=== PATIENT | female | born 1995 | race African-American/Black ===

== ENCOUNTER 2016-11-23 09:31 | Observation (INO) | payer SELFPAY ==
[~2016-11-23] VITALS: Ht 165.1 cm; Wt 104.5 kg
[2016-11-23] VITALS (7 sets, daily range): BP systolic 104–125; BP diastolic 59–79; PULSE 57–97; RESP 15–20; TEMP 98–99.9; O2SAT 95–100
[~2016-11-23 09:31] MED LIST: PERC5TAB12 PO
[2016-11-23] MEDS ORDERED: MORPHINE SULFATE 4 MG/ML INJ IV PUSH ONE (10:00)
--- NOTE | 2016-11-23 10:07 | PD ---
HPI Chief Complaint: Pain: Acute or Chronic Time Seen by Provider: 09:55 Travel History International Travel<30 days: No Contact w/Intl Traveler<30days: No Traveled to known affect area: No History of Present Illness HPI 21-year-old female here for evaluation of severe left elbow pain. The patient reports that yesterday she felt a strange sensation in her left elbow, feeling like it was "out," and unable to extend it fully. She manipulated her elbow and was able to "pop" it, and later on yesterday evening she had her father manipulate her elbow as well. She states that she woke up this morning with severe pain and swelling in her left elbow. Pain is constant, worse with movements and palpation. She is unable to move her elbow without causing extreme pain. In triage it was noted that she has a slight fever 99.9F. She denies IVDU, but admits to smoking marijuana. She is right-handed. [facility] Past Medical History Medical History: Denies Significant Hx Diminished Hearing: No Reproductive: Yes (Cyst on Ovaries) Tetanus Vaccination: < 5 Years Influenza Vaccination: Yes ?: Not LMP: 10/29/16 Past Surgical History Surgical History: No Previous Surgery Social History Alcohol Use: Yes (occ) Tobacco Use: Yes (2 black and milds daily) Substance Use: Yes (marijuana) Allergies-Medications (Allergen,Severity, Reaction): Coded Allergies: No Known Allergies (Unverified , 04/14/15) Reported Meds & Prescriptions Reported Meds & Active Scripts Active No Active Prescriptions or Reported Medications Review of Systems Except as stated in HPI: all other systems reviewed are Neg Physical Exam Narrative GENERAL: Pleasant, well-developed, well-nourished, tearful, no apparent distress. SKIN: Focused skin assessment warm/dry. HEAD: Atraumatic. Normocephalic. EYES: Pupils equal and round. No scleral icterus. No injection or drainage. ENT: Mucous membranes pink and moist. NECK: Trachea midline. No JVD. No nuchal rigidity. CARDIOVASCULAR: Regular rate and rhythm. Bilateral distal radial pulses are brisk and equal. RESPIRATORY: No accessory muscle use. Clear to auscultation. Breath sounds equal bilaterally. GASTROINTESTINAL: Abdomen soft, non-tender, nondistended. MUSCULOSKELETAL: Left elbow/proximal/distal forearm with moderate edema and diffuse tenderness. Patient holding her left arm in extension and supporting her arm with her right hand. All compartments in the left upper extremity are supple. Patient is able to flex and extend her hand without difficulty, causing mild pain in her left proximal forearm. There is overlying warmth over the left elbow without obvious erythema, no overlying skin lesions. NEUROLOGICAL: Awake and alert. No obvious cranial nerve deficits. Motor grossly within normal limits. Normal speech. Normal sensation in left upper extremity. PSYCHIATRIC: Appropriate mood and affect; insight and judgment normal. Data Data Last Documented VS Vital Signs Date Time Temp Pulse Resp B/P Pulse Ox O2 Delivery O2 Flow Rate FiO2 11/23/16 15:00 87 15 125/79 99 Room Air 11/23/16 09:55 98.0 Orders Basic Metabolic Panel (Bmp) (11/23/16 09:59) Beta Hcg (Quant/Titer) (11/23/16 09:59) Complete Blood Count With Diff (11/23/16 09:59) Prothrombin Time / Inr (Pt) (11/23/16 09:59) Act Partial Throm Time (Ptt) (11/23/16 09:59) Iv Access Insert/Monitor (11/23/16 09:59) Ecg Monitoring (11/23/16 09:59) Oximetry (11/23/16 09:59) Morphine Inj (Morphine Inj) (11/23/16 10:00) Sodium Chloride 0.9% Flush (Ns Flush) (11/23/16 10:00) Westergren Sedimentation Rate (11/23/16 09:59) C-Reactive Protein (Crp) (11/23/16 09:59) Blood Culture (11/23/16 09:59) Elbow, Complete (4 Vws) (11/23/16 ) Forearm (2vws) (11/23/16 ) Creatine Kinase (Cpk) (11/23/16 09:59) Hydromorphone Pf Inj (Dilaudid Pf Inj) (11/23/16 11:15) Mri Joint Elbow W&W/O Contrast (11/23/16 ) Gadodiamide Pf Inj (Omniscan Pf Inj) (11/23/16 12:15) Hydromorphone Pf Inj (Dilaudid Pf Inj) (11/23/16 15:30) Labs Laboratory Tests Test 11/23/16 10:20 White Blood Count 7.0 TH/MM3 Red Blood Count 4.53 MIL/MM3 Hemoglobin 13.4 GM/DL Hematocrit 40.7 % Mean Corpuscular Volume 90.0 FL Mean Corpuscular Hemoglobin 29.5 PG Mean Corpuscular Hemoglobin 32.8 % Concent Red Cell Distribution Width 14.3 % Platelet Count 263 TH/MM3 Mean Platelet Volume 8.2 FL Neutrophils (%) (Auto) 54.1 % Lymphocytes (%) (Auto) 33.6 % Monocytes (%) (Auto) 9.4 % Eosinophils (%) (Auto) 0.9 % Basophils (%) (Auto) 2.0 % Neutrophils # (Auto) 3.8 TH/MM3 Lymphocytes # (Auto) 2.3 TH/MM3 Monocytes # (Auto) 0.7 TH/MM3 Eosinophils # (Auto) 0.1 TH/MM3 Basophils # (Auto) 0.1 TH/MM3 CBC Comment DIFF FINAL Differential Comment Erythrocyte Sedimentation Rate 25 mm/hr Prothrombin Time 10.5 SEC Prothromb Time International 1.0 RATIO Ratio Activated Partial 31.7 SEC Thromboplast Time Sodium Level 140 MEQ/L Potassium Level 3.6 MEQ/L Chloride Level 106 MEQ/L Carbon Dioxide Level 27.5 MEQ/L Anion Gap 7 MEQ/L Blood Urea Nitrogen 5 MG/DL Creatinine 0.76 MG/DL Estimat Glomerular Filtration 114 ML/MIN Rate Random Glucose 92 MG/DL Calcium Level 8.6 MG/DL Total Creatine Kinase 132 U/L C-Reactive Protein 1.40 MG/DL Human Chorionic Gonadotropin, LESS THAN 1 Quant MIU/ML MDM Medical Decision Making Medical Screen Exam Complete: Yes Emergency Medical Condition: Yes Differential Diagnosis Elbow fracture, septic arthritis, DVT less likely, compartment syndrome less likely Narrative Course Initial vital signs show heart rate 97, blood pressure 125/72, pulse ox 100% on room air, oral temp of 99.9F. CBC is unremarkable. BMP is unremarkable. Beta hCG is negative. Total CK is 132. CRP is elevated at 1.4. ESR is elevated at 25. Left elbow x-ray shows no acute disease. Left forearm x-ray shows no acute disease. Patient was given a dose of morphine and on reassessment she is still crying because she is in pain. She is keeping her arm in extension. Again all compartments in the left upper extremity are supple, however her elbow is diffusely tender. MRI will be ordered to further investigate the patient's pain. MRI left elbow: CONCLUSION: 1. There is nonspecific myositis and tendinosis of triceps. No rupture seen. 2. Small joint effusion and mild to moderate synovitis. 3. Mild to moderate olecranon bursitis. 4. No osteomyelitis. Case discussed with on-call orthopedic surgeon Dr. Ball. No surgical intervention necessary at this time. Patient was made aware of all findings. She is again crying because of pain. She will be given another dose of Dilaudid. I supplied to left elbow and it is being kept elevated. Given uncontrolled pain, the patient be admitted for overnight observation. Case discussed with hospitalist Dr Rivero who will admit the patient to his service. Diagnosis Primary Impression: Left elbow pain Additional Impression: Intractable pain Admitting Information Admitting Physician Requests: Observation Scripts No Active Prescriptions or Reported Meds Oscar Adrian MD November 23, 2016 10:07
[2016-11-23 10:40] LABS: AUTOMATED NEUTROPHIL # 3.8 TH/MM3 (1.8-7.7); BASOPHIL # 0.1 TH/MM3 (0-0.2); EOSINOPHIL # 0.1 TH/MM3 (0-0.4); EOSINOPHIL % 0.9 % (0.0-4.0); HEMATOCRIT 40.7 % (35.0-46.0); HEMO FLAGS DIFF FINAL; LYMPH % 33.6 % (9.0-44.0); LYMPHOCYTE # 2.3 TH/MM3 (1.0-4.8); MEAN CORPUSCULAR HEMOGLOBIN 29.5 PG (27.0-34.0); MEAN CORPUSCULAR HGB CONC 32.8 % (32.0-36.0); MONO % 9.4 % (0.0-8.0); NEUT % 54.1 % (16.0-70.0); PLATELET COUNT 263 TH/MM3 (150-450); RED BLOOD COUNT 4.53 MIL/MM3 (4.00-5.30); RED CELL DISTRIBUTION WIDTH 14.3 % (11.6-17.2)
[2016-11-23 10:49] LABS: APTT (PATIENT) 31.7 SEC (24.3-30.1); PROTHROMBIN TIME - PATIENT 10.5 SEC (9.8-11.6)
--- NOTE | 2016-11-23 10:51 | RADRPT ---
EXAM DATE/TIME: 11/23/2016 10:28 [facility] COMPARISON: ELBOW LEFT COMPLETE (4 VWS), November 23, 2016, 10:29. INDICATIONS : Left elbow pain, no known injury. MEDICAL HISTORY : None. SURGICAL HISTORY : None. ENCOUNTER: Initial ACUITY: 2 days PAIN SCORE: 10/10 LOCATION: Left elbow FINDINGS: Two view examination of the left forearm demonstrates no evidence of fracture or dislocation. Bony m ineralization is normal. The soft tissue structures are intact. CONCLUSION: No acute disease. Vega Machuca MD on November 23, 2016 at 10:50 Board Certified Radiologist. This report was verified electronically.
--- NOTE | 2016-11-23 10:52 | RADRPT ---
EXAM DATE/TIME: 11/23/2016 10:29 [facility] COMPARISON: FOREARM LEFT (2VWS), November 23, 2016, 10:28. INDICATIONS : Left elbow pain, no known injury. MEDICAL HISTORY : None. SURGICAL HISTORY : None. ENCOUNTER: Initial ACUITY: 2 days PAIN SCORE: 10/10 LOCATION: Left elbow FINDINGS: Multiple view examination of the left elbow demonstrates no soft tissue swelling, joint effusion, or fracture. The osseous structures are in normal alignment. Bony mineralization is normal. CONCLUSION: No acute disease. Vega Machuca MD on November 23, 2016 at 10:50 Board Certified Radiologist. This report was verified electronically.
[2016-11-23 10:55] LABS: ANION GAP 7 MEQ/L (5-15); BICARBONATE 27.5 MEQ/L (21.0-32.0); BLOOD UREA NITROGEN 5 MG/DL (7-18); CHLORIDE 106 MEQ/L (98-107); GLOMERULAR FILTRATION RATE 114 ML/MIN (>89); POTASSIUM 3.6 MEQ/L (3.5-5.1); SODIUM (NA) 140 MEQ/L (136-145)
[2016-11-23 10:59] LABS: BETA HCG QUANT LESS THAN 1 MIU/ML (0-5); CREATINE KINASE 132 U/L (26-192)
[2016-11-23] MEDS ORDERED: HYDROmorphone HCL PF 1 MG/ML VIAL IV PUSH ONE ×2 (11:15→15:30)
[2016-11-23] MEDS ORDERED: GADODIAMIDE PF 287 MG/ML 20 ML VIAL (for RAD MRI) IV ONE (12:15)
--- NOTE | 2016-11-23 15:04 | RADRPT ---
EXAM DATE/TIME: 11/23/2016 11:48 [facility] COMPARISON: ELBOW LEFT COMPLETE (4 VWS), November 23, 2016, 10:29. INDICATIONS : Edema. New onset left elbow pain, fever, ans swelling without specific injury. CONTRAST: 20 cc Omniscan (gadodiamide) IV MEDICAL HISTORY : Ovarian cyst. SURGICAL HISTORY : None. ENCOUNTER: Initial ACUITY: 2 day PAIN SCORE: 4/10 LOCATION: Left elbow. TECHNIQUE: Multiplanar, multisequence MRI examination was performed without contrast and after the intravenous a dministration of gadolinium. FINDINGS: There is distal and insertional tendinosis of triceps. Edema and/or hemorrhage seen in the distal mus romana bellies, specially laterally.. There is focal 7 mm dark signal intensity laterally the distal ten don, probably calcific deposit. A few longitudinal splits are seen of the distal tendon but no transv erse tear/fluid-filled gap. Small amount of fluid with synovial thickening seen in the olecranon burs a. There is a small joint effusion with mild to moderate synovitis and reactive appearing synovial en hancement. No mass lesion demonstrated. There are no bony signal changes of osteomyelitis. CONCLUSION: 1. There is nonspecific myositis and tendinosis of triceps. No rupture seen. 2. Small joint effusion and mild to moderate synovitis. 3. Mild to moderate olecranon bursitis. 4. No osteomyelitis. Riky Mike MD on November 23, 2016 at 14:58 Board Certified Radiologist. This report was verified electronically.
[2016-11-23] MEDS ORDERED: ONDANSETRON HCL 4 MG/2 ML VIAL IV PUSH PRN (15:45)
[2016-11-23] MEDS ORDERED: HYDROmorphone HCL PF 1 MG/ML VIAL IV PUSH PRN (17:15)
[2016-11-23] MEDS ORDERED: ACETAMINOPHEN/HYDROcodone 325 MG/5 MG TAB PO PRN ×2 (17:15)
--- NOTE | 2016-11-23 17:19 | HHI.HP ---
[facility] No Primary Care Physician Admission Diagnosis intractable left elbow pain Diagnoses: (1) Left elbow pain Diagnosis: Principal Chief Complaint: left elbow pain and swelling Travel History International Travel<30 Days: No Contact w/Intl Traveler <30 Da: No Traveled to Known Affected Are: No History of Present Illness patient is a 21 y/o female with no significant past medical history who presented to ER with pain and swelling of the left elbow. she says that she slipped on the floor the other night after which she started to have some pain and swelling of the left elbow. she says that her father tried to manipulate her elbow after which the swelling and pain got worse.she denies any fever or any other complaints. Review of Systems Constitutional: DENIES: Fever, Weight loss, Chills, Night Sweats Eyes: DENIES: Blurred vision, Diplopia, Vision loss, Double Vision Ears, nose, mouth, throat: DENIES: Tinnitus, Vertigo, Throat pain, Epistaxis Respiratory: DENIES: Apneas, Cough, Snoring, Wheezing, Hemoptysis, Sputum production, Shortness of breath Cardiovascular: DENIES: Chest pain, Palpitations, Syncope, Dyspnea on Exertion , PND, Lower Extremity Edema, Orthopnea, Claudication Gastrointestinal: DENIES: Abdominal pain, Black stools, Bloody stools, Constipation, Diarrhea, Nausea, Vomiting, Difficulty Swallowing, Anorexia Genitourinary: DENIES: Urinary frequency, Urgency, Hematuria, Dysuria Musculoskeletal: COMPLAINS OF: Joint pain (left elbow), DENIES: Muscle aches, Stiffness, Joint Swelling Integumentary: DENIES: Rash Neurologic: DENIES: Abnormal gait, Headache, Localized weakness, Paresthesias, Seizures, Speech Problems, Tremor, Poor Balance Psychiatric: DENIES: Anxiety, Confusion, Mood changes, Depression, Hallucinations, Agitation, Suicidal Ideation, Homicidal Ideation, Delusions Past Family Social History Past Medical History not significant. Past Surgical History none reported. Reported Medications none reported. Allergies: Coded Allergies: No Known Allergies (Unverified , 04/14/15) Active Ordered Medications Current Medications Morphine Sulfate (Morphine Inj) 4 mg ONCE ONCE IV PUSH Last administered on 10:39; Start 11/23/16 at 10:00; Stop 11/23/16 at 10:04; Status DC Sodium Chloride (NS Flush) 2 ml UNSCH PRN IV FLUSH FLUSH AFTER USING IV ACCESS ; Start 11/23/16 at 10:00 Hydromorphone HCl (Dilaudid Pf Inj) 1 mg ONCE ONCE IV PUSH Last administered on 11/23/16 11:24; Start 11/23/16 at 11:15; Stop 11/23/16 at 11:16; Status DC Gadodiamide (Omniscan Pf Inj) 20 ml STK-MED ONCE IV Last administered on 12:15; Start 11/23/16 at 12:15; Stop 11/23/16 at 12:16; Status DC Hydromorphone HCl (Dilaudid Pf Inj) 1 mg ONCE ONCE IV PUSH Last administered on 11/23/16 15:36; Start 11/23/16 at 15:30; Stop 11/23/16 at 15:31; Status DC Ondansetron HCl (Zofran Inj) 4 mg Q8HR PRN IV PUSH NAUSEA; Start 11/23/16 at 15 :45 Family History not relevant to this admission. Social History smokes few cigarettes a day- drinks occasionally. Physical Exam Vital Signs Vital Signs Date Time Temp Pulse Resp B/P Pulse Ox O2 Delivery O2 Flow Rate FiO2 11/23/16 15:00 87 15 125/79 99 Room Air 11/23/16 14:10 16 11/23/16 10:44 16 11/23/16 10:39 57 18 115/66 97 11/23/16 09:55 98.0 11/23/16 09:33 99.9 97 20 125/72 100 Room Air Physical Exam GENERAL: This is a well-nourished, well-developed patient, in no apparent distress. SKIN: No rashes, ecchymoses or lesions. Cool and dry. HEAD: Atraumatic. Normocephalic. No temporal or scalp tenderness. EYES: Pupils equal round and reactive. Extraocular motions intact. No scleral icterus. No injection or drainage. ENT: Nose without bleeding, purulent drainage or septal hematoma. Throat without erythema, tonsillar hypertrophy or exudate. Uvula midline. Airway patent. NECK: Trachea midline. No JVD or lymphadenopathy. Supple, nontender, no meningeal signs. CARDIOVASCULAR: Regular rate and rhythm without murmurs, gallops, or rubs. RESPIRATORY: Clear to auscultation. Breath sounds equal bilaterally. No wheezes , rales, or rhonchi. GASTROINTESTINAL: Abdomen soft, non-tender, nondistended. No hepato-splenomegaly , or palpable masses. No guarding. MUSCULOSKELETAL: left arm is swollen and tender along with swelling of the left elbow. NEUROLOGICAL: Awake and alert. Cranial nerves II through XII intact. Motor and sensory grossly within normal limits. Five out of 5 muscle strength in all muscle groups. Normal speech. Laboratory Laboratory Tests Test 11/23/16 10:20 White Blood Count 7.0 Red Blood Count 4.53 Hemoglobin 13.4 Hematocrit 40.7 Mean Corpuscular Volume 90.0 Mean Corpuscular Hemoglobin 29.5 Mean Corpuscular Hemoglobin 32.8 Concent Red Cell Distribution Width 14.3 Platelet Count 263 Mean Platelet Volume 8.2 Neutrophils (%) (Auto) 54.1 Lymphocytes (%) (Auto) 33.6 Monocytes (%) (Auto) 9.4 Eosinophils (%) (Auto) 0.9 Basophils (%) (Auto) 2.0 Neutrophils # (Auto) 3.8 Lymphocytes # (Auto) 2.3 Monocytes # (Auto) 0.7 Eosinophils # (Auto) 0.1 Basophils # (Auto) 0.1 CBC Comment DIFF FINAL Differential Comment Erythrocyte Sedimentation Rate 25 Prothrombin Time 10.5 Prothromb Time International 1.0 Ratio Activated Partial 31.7 Thromboplast Time Sodium Level 140 Potassium Level 3.6 Chloride Level 106 Carbon Dioxide Level 27.5 Anion Gap 7 Blood Urea Nitrogen 5 Creatinine 0.76 Estimat Glomerular Filtration 114 Rate Random Glucose 92 Calcium Level 8.6 Total Creatine Kinase 132 C-Reactive Protein 1.40 Human Chorionic Gonadotropin, LESS THAN 1 Quant Date/Time Procedure Status Source Growth 11/23/16 10:25 Aerobic Blood Culture Received Blood Peripheral Pending 11/23/16 10:25 Anaerobic Blood Culture Received Blood Peripheral Pending Result Diagram: 11/23/16 1020 11/23/16 1020 Imaging Last Impressions Radius/Ulna X-Ray 11/23/16 0000 Signed Impressions: Service Date/Time: Wednesday, November 23, 2016 10:28 - CONCLUSION: No acute disease. Vega Machuca MD Elbow X-Ray 11/23/16 0000 Signed Impressions: Service Date/Time: Wednesday, November 23, 2016 10:29 - CONCLUSION: No acute disease. Vega Machuca MD Elbow MRI 11/23/16 0000 Signed Impressions: Service Date/Time: Wednesday, November 23, 2016 11:48 - CONCLUSION: 1. There is nonspecific myositis and tendinosis of triceps. No rupture seen. 2. Small joint effusion and mild to moderate synovitis. 3. Mild to moderate olecranon bursitis. 4. No osteomyelitis. Riky Mike MD Assessment and Plan Assessment and Plan A/P - triceps tendonitis and olecranon bursitis continue with pain control- will consult ortho. Discussed Condition With ER physician and the patient. Elvira Rivero MD November 23, 2016 17:19
[2016-11-23] MEDS: SODIUM CHLORIDE 0.9% FLUSH 10 ML FLUSH IV FLUSH PRN ×2 (18:11→20:23)
[2016-11-24 04:18] VITALS: BP 103/57; PULSE 86; RESP 18; TEMP 98.4; O2SAT 97
[2016-11-24] MEDS ORDERED: IBUP800T23 PO (07:17)
[2016-11-24] MEDS ORDERED: IBUPROFEN 800 MG TAB PO SCH (07:30)
[2016-11-24 07:44] VITALS: BP 109/58; PULSE 69; RESP 18; TEMP 98.1; O2SAT 97
--- NOTE | 2016-11-24 09:27 | HHI.DCPOC ---
Discharge Care Plan Diagnosis: (1) Left elbow pain (2) Olecranon bursitis of left elbow (3) Synovitis of elbow (4) Triceps tendonitis Goals to Promote Your Health * To prevent worsening of your condition and complications * To maintain your health at the optimal level Directions to Meet Your Goals Take your medications as prescribed Follow your dietary instruction Follow activity as directed Keep your appointments as scheduled Take your immunizations and boosters as scheduled If your symptoms worsen call your PCP, if no PCP go to Urgent Care Center or Emergency Room Smoking is Dangerous to Your Health. Avoid second hand smoke Call the 24-hour hour crisis hotline for domestic abuse at Radha Grmim PA-C November 24, 2016 9:26 am
[2016-11-24] MEDS: SODIUM CHLORIDE 0.9% FLUSH 10 ML FLUSH IV FLUSH PRN (09:28)
--- NOTE | 2016-11-24 09:32 | MB ---
cc: BRANDEN BRITT DATE OF SERVICE 11/24/2016 CHIEF COMPLAINT Left elbow pain and swelling. HISTORY OF PRESENT ILLNESS The patient is a 21-year-old female who presents today with a three-day history of left elbow pain. She states that her elbow pain started approximately three days ago. She states that she had her father "pull" her elbow which caused it to pop. She states that after experiencing this popping sensation she had immediate pain and swelling. She states the swelling has progressed. She states that her pain is on the back part of her elbow. She reports that she has pain with movement and bending and extending her elbow. She denies any numbness, tingling or radiation symptoms. She denies any redness. Denies any recent trauma to the elbow. Also denies any recent scrapes or cuts. She states that she has been icing her elbow while she has been in the emergency department states that the swelling has slightly improved. She also denies any fever or any other complaints. REVIEW OF SYSTEMS Negative except what is mentioned the HPI. A complete 9 point review of systems was completed and was negative except for what is in the HPI. PAST MEDICAL HISTORY Noncontributory. PAST SURGICAL HISTORY None. REPORTED MEDICATIONS None. ALLERGIES No known allergies. For a complete list of inpatient medications, please see the MAR. FAMILY HISTORY. Noncontributory. SOCIAL HISTORY She says that she smokes a few cigarettes per day and occasionally drinks. PHYSICAL EXAMINATION VITALS: Temperature 98.6, pulse 72, respiratory rate 18, blood pressure 104/59 and O2 saturation is 99% on room air. GENERAL: Well-developed, well-nourished -[place] female resting comfortably in no acute distress. Head: Normocephalic, atraumatic. Ears: Hearing intact bilaterally. Eyes: Extraocular motions intact. Pupils equal, round, react to light. HEAD AND NECK: Neck Supple with no evidence of lymphadenopathy. Cranial nerves II-XII grossly intact. LUNGS: No auditory wheezes appreciated at bedside. No use of accessory muscles while breathing. HEART: No grade 4 murmur present. ABDOMEN: Soft and nontender. MUSCULOSKELETAL: Left upper extremity with full motion of shoulder, wrists. Fingers with no pain. Full sensation median and ulnar nerve distribution. Full radial nerve function. She does have a mild to moderate amount of swelling on the posterior elbow. She is tender to touch with palpation of the olecranon. She does have pain with elbow flexion. She has range of motion of the elbow from approximately 20 degrees to 85 degrees. No fluctuance is noted with palpation of the posterior elbow. She is nontender over the medial and lateral elbow and nontender over the anterior elbow. No erythema appreciated. Right upper extremity with full motion of the shoulder, elbow, wrist and fingers and no painful sensation distally. Bilateral lower extremities with full motion of the hips, knees, ankles and toes and no pain with full sensation distally. IMAGING STUDIES X-rays as well as MRI were reviewed from [facility] which show a small joint effusion present with also some potential tendinitis or tenosynovitis of the triceps insertion also shows potentially mild olecranon bursitis. No fractures noted and no apparent swelling or infection noted. ASSESSMENT Possible olecranon bursitis versus early onset cellulitis. PLAN The treatment options were discussed with the patient at the bedside. I informed her that currently this is presenting like a potential bursitis. There is a small chance that it could be the early onset of a cellulitis. However, at this point, is a nonsurgical option. She may resume her diet. She may be orthopedically cleared for discharge. I will discharge her with ibuprofen 800 mg q.4 hours for inflammation. I encouraged her to keep moving her elbow and to keep icing and taking antiinflammatories. We will follow up with her in the office in 10 days to reevaluate. If this does develop into a cellulitis, it could require oral antibiotics and we will evaluate that at her office visit in 10 days. Otherwise, she is cleared for discharge from the orthopedic standpoint. Thank you for this consultation. If any other issues arise, please reconsult Orthopedics. The above patient case was discussed and reviewed with Dr. Britt and he agrees to the above plan. Dictated by: Jai Beebe PA-C I also saw and examined this patient. History, past medical history, social history, review of systems, physical exam, radiographs, assessment, and plan were also reviewed. Plan on nonoperative treatment at this time. A mid-level provider in my office (nurse practitioner or physician microbiology lab assistant) may see this patient on follow-up visits and continue to implement the objectives of this plan including: Starting or adjusting medications, injections, cast application , orthotics, brace application, physical therapy, radiological studies ( including x-ray, MRI, CT, ultrasound, bone scan), vascular studies, neurologic studies, specialist consultation, and proceeding with surgical management, as appropriate. Branden MD AIDEN Van/MAMADOU /7:22 AM /9:25 AM MTDJason
--- NOTE | 2016-11-24 09:36 | HHI.PR ---
Subjective Remarks Follow up for left elbow injury. The patient reports continued left elbow pain and swelling however improved compared to yesterday. Still with limited ROM of the elbow secondary to the pain/swelling. Denies fevers/chills. Orthopedics has seen her and cleared her for discharge. The patient is right handed, student only, goes to school online, and does not work. She agrees to trying ibuprofen for pain and inflammation control. She wants to go home. Objective Vitals Vital Signs Date Time Temp Pulse Resp B/P Pulse Ox O2 Delivery O2 Flow Rate FiO2 11/24/16 07:44 98.1 69 18 109/58 97 11/24/16 04:40 16 11/24/16 04:18 98.4 86 18 103/57 97 11/23/16 23:11 98.6 72 18 104/59 99 11/23/16 20:54 16 11/23/16 20:17 16 11/23/16 19:31 99.0 68 18 105/63 98 11/23/16 18:06 99.3 88 20 119/68 95 11/23/16 15:00 87 15 125/79 99 Room Air 11/23/16 14:10 16 11/23/16 10:44 16 11/23/16 10:39 57 18 115/66 97 11/23/16 09:55 98.0 11/23/16 09:33 99.9 97 20 125/72 100 Room Air Result Diagram: 11/23/16 1020 11/23/16 1020 Imaging Last Impressions Radius/Ulna X-Ray 11/23/16 0000 Signed Impressions: Service Date/Time: Wednesday, November 23, 2016 10:28 - CONCLUSION: No acute disease. Vega Machuca MD Elbow X-Ray 11/23/16 0000 Signed Impressions: Service Date/Time: Wednesday, November 23, 2016 10:29 - CONCLUSION: No acute disease. Vega Machuca MD Elbow MRI 11/23/16 0000 Signed Impressions: Service Date/Time: Wednesday, November 23, 2016 11:48 - CONCLUSION: 1. There is nonspecific myositis and tendinosis of triceps. No rupture seen. 2. Small joint effusion and mild to moderate synovitis. 3. Mild to moderate olecranon bursitis. 4. No osteomyelitis. Riky Mike MD Objective Remarks GENERAL: Well-nourished, well-developed young female patient in [facility]. SKIN: Warm and dry. No rash. HEENT: Normocephalic. Atraumatic.Pupils equal and round. Mucous membranes pink and moist. NECK: Supple. Trachea midline. CARDIOVASCULAR: Regular rate and rhythm. S1, S2 noted. No murmur appreciated. RESPIRATORY: No accessory muscle use. Clear to auscultation. Breath sounds equal bilaterally. GASTROINTESTINAL: Abdomen soft, non-tender, nondistended. Normoactive bowel sounds x4. MUSCULOSKELETAL: No obvious deformities. Diffuse left forearm and elbow edema, diffusely tender to palpation. Left elbow ROM limited secondary to pain and swelling, flexion to 60 degrees, full extension to 180 degrees. NEUROLOGICAL: Awake and alert. No obvious cranial nerve deficits. Motor grossly within normal limits. 5/5 muscle strength in bilateral upper and lower extremities. Normal speech. PSYCHIATRIC: Appropriate mood and affect; insight and judgment normal. Medications and IVs Current Medications Medications (Trade) Dose Ordered Sig/Herman Route Start Time Stop Time Status Last Admin (NS Flush) 2 ml UNSCH PRN IV FLUSH 11/23/16 10:00 11/23/16 20:23 (Zofran Inj) 4 mg Q8HR PRN IV PUSH 11/23/16 15:45 11/23/16 18:10 (Clymer 5-325 Mg) 1 tab Q4H PRN PO 11/23/16 17:15 11/23/16 18:11 (Clymer 5-325 Mg) 2 tab Q4H PRN PO 11/23/16 17:15 11/24/16 03:40 (Dilaudid Pf Inj) 0.2 mg Q4H PRN IV PUSH 11/23/16 17:15 11/23/16 20:23 (Motrin) 800 mg Q6HR PO 11/24/16 07:30 A/P Problem List: (1) Left elbow pain ICD Code: M25.522 Status: Acute Assessment and Plan 21-year-old otherwise healthy right handed female presents with a one-day history of left elbow pain/swelling Left elbow injury with acute olecranon bursitis, triceps tendonitis: Left radius /ulna/elbow x-rays reviewed, no acute fracture. Left elbow MRI images reviewed , showed nonspecific myositis, tendinosis of triceps, no rupture seen; small joint effusion and mild to moderate synovitis; mild to moderate olecranon bursitis; no osteomyelitis. Afebrile, no leukocytosis. Patient's pain improving with IV Dilaudid and oral Clymer. Continued Ice packs. Orthopedics consulted, recommended ibuprofen 800mg q6h and cleared for discharge. Instructed patient to take ibuprofen with food. Outpatient f/up with Dr. Ball in 10 days. Discharge Planning Discharge patient to home Condition on discharge: Improved Regular Diet as tolerated Ad Johanna activity Rx written: ibuprofen 800mg q6h prn pain/inflammation #40 (provided by ortho) Follow-up with primary care physician and ortho Dr. Ball in 10 days Radha Grimm PA-C November 24, 2016 9:36 am
== END 2016-11-24 10:44 | disposition home or self-care (01) ==
LOC: NEPD 09:31 → NEDA 15:42 → NEPHCDU 17:44
PROVIDERS: ADMIT Internal Medicine; ATTEND Internal Medicine
DX: M70.22 Olecranon bursitis, left elbow (principal); M60.822 Other myositis, left upper arm; F17.210 Nicotine dependence, cigarettes, uncomplicated; F12.90 Cannabis use, unspecified, uncomplicated
CPT/HCPCS: 73080; 73090; 73223; 80048; 82550; 84702; 85025; 85610; 85652; 85730; 86140; 87040; 96374; 96375; 96376; 99285; A9579; G0378; J1170; J2270; J2405